=== PATIENT | female | born 1960 | race Caucasian/White ===

== ENCOUNTER 2017-09-18 16:08 | Emergency (ER) | payer BC ==
[~2017-09-18] VITALS: Ht 160 cm; Wt 95.3 kg
[~2017-09-18 16:08] MED LIST: ALLEGRA; BIOTIN; MUCINEX
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
[2017-09-18 18:53] LABS: BASOPHILS % 0.2 % (0.0-1.0); EOSINOPHILS # (AUTO) 0.1 (0.0-0.4); EOSINOPHILS % 0.8 % (0.0-6.0); HEMATOCRIT 39.1 % (34.2-44.1); HEMOGLOBIN 12.7 g/dL (12.0-16.0); LYMPHOCYTES # (AUTO) 2.1 (1.0-3.2); LYMPHOCYTES % 35.7 % (18.0-39.1); MEAN CORPUSCULAR HEMOGLOBIN 32.8 pg (28-32); MEAN CORPUSCULAR HGB CONC 32.5 g/dL (31-35); MONOCYTES # (AUTO) 0.5 (0.2-0.8); MONOCYTES % 9.2 % (4.4-11.3); NEUTROPHILS # (AUTO) 3.2 (2.1-6.9); NEUTROPHILS % 53.8 % (38.7-80.0); PLATELET COUNT 151 x10e3/uL (140-360); RED BLOOD COUNT 3.87 x10e6/uL (3.6-5.1); RED CELL DISTRIBUTION WIDTH 13.2 % (11.7-14.4)
--- NOTE | 2017-09-18 18:57 | Diagnostic Imaging Report ---
Examination: CT BRAIN WO History:Trauma from fall Comparison studies:None Technique: Axial images were obtained from the skull base to the vertex. Coronal and sagittal images reconstructed from the axial data. Intravenous contrast: None Findings: Scalp: No abnormalities. Bones: No fractures, blastic or lytic lesions. Brain sulci: Appropriate for age. Ventricles: Normal in size and configuration. No hydrocephalus. Extra-axial space: No abnormalities. Parenchyma: No abnormal densities. No masses, hemorrhage, acute or chronic vascular insults. Sellar/suprasellar region: No abnormalities. Craniocervical junction: Patent foramen magnum. No Chiari one malformation. Impression: No intracranial abnormalities. Preliminary report was given by neuroradiology fellow Dr. Tapia at 6:57 PM on 09/18/2017. I have reviewed the images and agree with the findings in the preliminary report. Signed by: Dr. Penny Carrera M.D. on 09/18/2017 7:57 PM
[2017-09-18 19:04] LABS: INR 0.86; PROTHROMBIN TIME 12.1 seconds (11.9-14.5)
[2017-09-18 19:05] LABS: PARTIAL THROMBOPLASTIN TIME 27.5 seconds (23.8-35.5)
[2017-09-18 19:08] LABS: ANION GAP 15.7 mmol/L (8-16); CALCIUM 9.4 mg/dL (8.4-10.2); CREATININE, SERUM 2.29 mg/dL (0.57-1.11); POTASSIUM 3.7 mmol/L (3.5-5.1)
--- NOTE | 2017-09-18 19:09 | Diagnostic Imaging Report ---
Examination: CT Face without Contrast History:Fall Comparison studies: None Technique: Axial images were obtained through the maxillofacial region. Coronal and sagittal reconstructions obtained from the axial data. Intravenous contrast: None Findings: Soft tissues: Left infraorbital/pre-maxillary soft tissue swelling Bones: Minimally displaced fracture of the left maxillary sinus anterior wall (series 8 image 32). Orbits: Globes: Intact Extra or intraconal abnormalities: None. Paranasal sinuses: Air-fluid level and hyperdensity in the left maxillary sinus, representing hemorrhage. Circumferential mucosal thickening in the right maxillary sinus, which is asymmetrically hypoplastic. Nasal cavity: Rightward deviation of the bony nasal septum, with a large right nasal spur. IMPRESSION: 1. Minimally displaced fracture of the left maxillary sinus anterior wall, with intrasinus hemorrhage. 2. Left infraorbital/premaxillary soft tissue swelling. 3. Chronic right nasal septum deviation with a large nasal bone spur. No nasal bone fracture identified. Preliminary report was given by neuroradiology fellow Dr. Tapia at 6:53 PM on 09/18/2017. I have reviewed the images and agree with the findings in the preliminary report. Signed by: Dr. Pneny Carrera M.D. on 09/18/2017 8:05 PM
--- NOTE | 2017-09-18 19:32 | Diagnostic Imaging Report ---
PROCEDURE:X-RAY LEFT HAND, THREE OR MORE VIEWS COMPARISON:None. INDICATIONS:FALL FINDINGS: There are no displaced fractures, dislocations, lytic or blastic lesions. The soft-tissues are unremarkable. CONCLUSION: No acute osseous abnormalities. Dictated by: Thuan Landry M.D. on 09/18/2017 at 19:42 Electronically approved by: Thuan Landry M.D. on 09/18/2017 at 19:42
--- NOTE | 2017-09-18 20:04 | Diagnostic Imaging Report ---
History: Fall Comparison studies: None Technique: Axial images were obtained through the cervical region.. Coronal and sagittal images reconstructed from the axial data.. Intravenous contrast: None Findings: Fractures: None. Soft tissues: No gross abnormalities. Atlantoaxial articulation: Intact. Alignment: Reversal of normal cervical lordosis is either positional or due to muscle spasm. No scoliosis. Cervicomedullary junction: No abnormalities. The foramen magnum is patent. Vertebrae: No infection or neoplasm. Degenerative changes: Mild multilevel degenerative changes of the cervical spine. IMPRESSION: 1. No acute cervical spine fracture. 2. Cannot exclude ligament, spinal cord and or vascular abnormalities on the basis of this examination. Preliminary report was given by neuroradiology fellow Dr. Tapia at 6:53 PM on 09/18/2017. I have reviewed the images and agree with the findings in the preliminary report. Signed by: Dr. Penny Carrera M.D. on 09/18/2017 8:00 PM
[2017-09-18] MEDS ORDERED: AUGMENTIN 875-1 EACH PO (20:41)
[2017-09-18] MEDS ORDERED: TYLENOL WITH C1 EACH PO (20:41)
[2017-09-18 21:37] VITALS: BP 164/92
== END 2017-09-18 21:44 | disposition home or self-care (01) ==
LOC: ER 16:08
DX: S02.401A Maxillary fracture, unspecified side, initial encounter for closed fracture (principal); S16.1XXA Strain of muscle, fascia and tendon at neck level, initial encounter; S60.222A Contusion of left hand, initial encounter; S80.02XA Contusion of left knee, initial encounter; I10 Essential (primary) hypertension; K74.60 Unspecified cirrhosis of liver; W01.0XXA Fall on same level from slipping, tripping and stumbling without subsequent striking against object, initial encounter; Y92.89 Other specified places as the place of occurrence of the external cause
CPT/HCPCS: 36415; 70450; 70486; 72125; 80048; 85025; 85610; 85730; 99284